=== PATIENT | female | born 1975 | race African-American/Black ===

== ENCOUNTER 2019-06-26 13:36 | Emergency (ER) | payer MEDICARE, MEDICAID, SELFPAY ==
[2019-06-26 13:58] VITALS: BP 127/83; PULSE 78; RESP 16; TEMP 37; O2SAT 100
[2019-06-26 14:24] VITALS: BP 136/74; PULSE 88; RESP 16; TEMP 36.8; O2SAT 98
--- NOTE | 2019-06-26 14:26 | PCCCNOTE ---
Made referral to Homeless Hotline: [phone]. They will make a referral to the [facility] in [place], [place]. Placement pending room availability. [facility] # [phone].
--- NOTE | 2019-06-26 14:29 | ED.PSYCH ---
HPI - Psych General Chief Complaint: Psychiatric Symptoms Stated Complaint: Incontinence Time Seen by Provider: 06/26/19 14:08 Source: patient Mode of arrival: other (PD) Limitations: no limitations History of Present Illness HPI Narrative: Pt is a 44 y/o female with a H/O schizophrenia, that presents to the ED by the PD, to receive a psychiatric evaluation. Pt states she was taken by the PD d/t her trespassing. She states that ran out of her trazodone 3-4 days ago. Pt also takes Latuda and Zoloft. She denies SI, HI, N/V/D, constipation, coughing, sneezing, or rhinorrhea. Pt reports a SLAUGHTER that started 2 hours ago and menstrual cramps. She also states that she has had intermittent urinary incontinence for the last 3 weeks. Pt lives alone but notes that she does have a boyfriend that she sees occasionally. Pt denies smoking, drinking, or using drugs. MD complaint: other (psychiatric evaluation) Onset (ago): unknown History of same: Yes Context: not taking psychiatric medications (out of Trazadone) Associated psychiatric symptoms: other (schizophrenia) Associated symptoms: headache and other (urinary incontinence) Related Data Home Medications Medication Instructions Recorded Confirmed lurasidone [Latuda] mg 06/26/19 sertraline mg 06/26/19 trazodone 06/26/19 06/26/19 Allergies Allergy/AdvReac Type Severity Reaction Status Date / Time No Known Allergies Allergy Unverified 11/27/18 14:35 Review of Systems Review of Systems: All systems reviewed & are unremarkable except as noted in HPI and below ENT: Denies other (sneezing, rhinorrhea) Respiratory: Respiratory: Denies cough Gastrointestinal: Gastrointestinal: Denies constipation, Denies diarrhea, Denies nausea, Denies vomiting and Reports other (menstrual cramps) Genitourinary: Genitourinary: Reports urinary incontinence Neurologic: Reports headache(s) Psychiatric: Psychiatric: Denies homicidal ideation and Denies suicidal ideation [facility] Past Medical History Medical History (Updated 06/26/19 @ 14:57 by Chet Patricia) Depression Schizophrenic disorder Surgical History Surgical History (Updated 06/26/19 @ 14:57 by Chet Patricia) No significant past surgical history Social History Social History (Updated 03/11/20 @ 14:57 by Chet Yepez Smoking status: Never smoker Alcohol intake: never Substance use: never Gender identity (if verbalized by the patient): Female Exam Narrative: Exam Narrative: General appearance: Well-developed, well-nourished Skin: Normal color Head: Normocephalic, nontraumatic Eyes: Clear conjunctiva ENT: Oropharynx normal, ears normal, nose normal Neck: Supple, nontender Chest and respiratory: Airway patent, no respiratory distress, no accessory muscle use Heart: Regular rate/rhythm Abdomen: Soft, nontender, no organomegaly, quiet bowel sounds Vascular: Normal peripheral pulses, normal capillary refill. Musculoskeletal: Normal range of motion, nontender back Neurologic: Alert and oriented ?3, SOLE ROUGHER is normal as tested, no gross motor deficit Course Course Emergency Course: Unchanged Reevaluation(s) Reevaluation #1: Patient had hematuria secondary to her menstrual cycle. Currently patient on her menstrual cycle. Patient is ready to go home where she used to live before. Date: 06/26/19 Time: 17:15 Vital Signs Vital signs: Vital Signs Temperature 37.0 C 06/26/19 13:58 Pulse Rate 78 06/26/19 13:58 Respiratory Rate 16 06/26/19 13:58 Blood Pressure 127/83 06/26/19 13:58 Pulse Oximetry 100 06/26/19 13:58 Temperature 36.8 C 06/26/19 14:24 Pulse Rate 84 06/26/19 16:28 Respiratory Rate 16 06/26/19 16
[2019-06-26] MEDS: ACETAMINOPHEN 325 MG TABLET 650 MG PO (14:44)
--- NOTE | 2019-06-26 15:01 | PC.NURSE ---
PT HERE VIA PD FROM [place]. DROPPED OFF HERE TO FIND PT PLACEMENT. PT SAID TO BE NON COMPLIANT WITH MEDICATIONS. PT TELLS ME THAT SHE IS SCHIZOPHRENIC. IS OFF HER MEDS, LATUDA, SERTRALINE AND TRAZODONE. PT SAYS SHE IS BETWEEN HOMES RIGHT NOW. PT HAS HAD CONTACT WITH DR KY MONTERO, HAS NOT SEEN HIM IN THE LAST MONTH OR TWO. PT SAYS SHE IS HEARING VOICES, DISTRACTING NOT COMMAND. PT DENIED ANY THOUGHTS OF SELF HARM., IS COMPLIANT AT THIS TIME PT ONLY C/O OF A HEADACHE WHICH SHE RECEIVED TYLENOL
[2019-06-26 15:14] LABS: Eosinophils Absolute Auto 0.1 K/mm3 (0-0.3); Hematocrit 36.7 % (37.0-47.0); Hemoglobin 11.3 g/dL (12.0-15.0); Immature Granulocyte Absolute 0.01 K/mm3 (0.00-0.031); Immature Granulocyte Percent A 0.3 % (0-0.5); Immature Platelet Fraction Pct 2.6 % (0.9-11.2); Lymphocytes Absolute Auto 0.95 K/mm3 (0.9-3.2); Lymphocytes Percent Auto 24.1 % (18.3-44.2); Mean Corpuscular HGB Conc 30.8 g/dl (32-36); Mean Corpuscular Hemoglobin 23.4 pg (26-34); Mean Corpuscular Volume 76.1 fl (80-100); Mean Platelet Volume 10.1 fl (7.4-10.4); Monocytes Absolute Auto 0.3 K/mm3 (0.1-0.6); Monocytes Percent Auto 8.4 % (2.6-8.5); Neutrophils Absolute Auto 2.5 K/mm3 (1.3-6.7); Neutrophils Percent Auto 64.2 % (45.5-73.1); Platelet Count Result 214 k/mm3 (150-375); Red Blood Count 4.82 M/mm3 (4.2-5.4); Red Cell Distribution Width 18.9 % (11.5-14.5)
[2019-06-26 15:19] LABS: Add Urine Microscopic? YES; Appearance Urine Clear (Clear); Bacteria Urine Trace /hpf; Bilirubin Urine Negative (Negative); Blood Urine 3+ (Negative); Color Urine Amber (Yellow); Glucose Urine UA Negative (Negative); Ketones Urine Negative (Negative); Leukocyte Esterase Ur Negative LEU/UL (Negative); Mucus Urine Rare /lpf; Nitrate Urine Negative (Negative); Protein Urine 2+ mg/dL (Negative); RBC Urine >75 /hpf (0-2); Specific Grav Ur 1.021 (1.001-1.035); Squamous Epithelial Cell Urine Many /hpf (Few); Urobilinogen Urine Negative mg/dL (<2.0)
[2019-06-26 15:30] LABS: Ethanol < 10 mg/dL (<10)
[2019-06-26 15:33] LABS: Alanine Aminotransferase 15 U/L (4-35); Albumin Level 4.2 g/dL (3.5-5.1); Alkaline Phosphatase 82 U/L (38-126); Aspartate Amino Transferase 27 U/L (14-36); Bilirubin,Total 1.4 mg/dL (0.2-1.3); Blood Urea Nitrogen 10 mg/dL (7-17); Calcium 9.2 mg/dL (8.4-10.2); Carbon Dioxide 29 mmol/L (22-30); Chloride 106 mmol/L (98-107); Estimated CRCL calculation 56 ml/min; Estimated Glomerular Filt Rate > 60; Glucose 130 mg/dL (65-105); Potassium 4.1 mmol/L (3.4-5.0); Sodium 140 mmol/L (137-145)
[2019-06-26 15:40] LABS: Amphetamine Screen Urine Negative (Negative); Barbiturate Screen Urine Negative (Negative); Benzodiazepines Screen Urine Negative (Negative); Cannabinoid Screen Urine Negative (Negative); Cocaine Screen Urine Negative (Negative); Methadone Screen Urine Negative (Negative); Opiate Screen Urine Negative (Negative); Phencyclidine Screen Urine Negative (Negative)
[2019-06-26 16:07] LABS: Thyroid Stimulating Hormone 0.916 uIU/mL (0.465-4.680)
--- NOTE | 2019-06-26 16:27 | PCCCNOTE ---
Made referrals to [facility] Homeless hotline and spoke with [facility]. They are refusing patient. Patient was in there system and the director has refused accepting patient. Contacted [facility], [place] [phone]. They spoke with patient and made an intake referral. There are no beds available in the [place] [facility] area at this time. Gave patient the phone numbers of the contacts I spoke with. She is being d/c'd home. T
[2019-06-26 16:28] VITALS: BP 142/81; PULSE 84; RESP 16; O2SAT 98
== END 2019-06-26 17:34 | disposition home or self-care (01) ==
PROVIDERS: Emergency Provider Emergency Medicine; PCP Internal Medicine Infectious Disease
DX: R35.8 Other polyuria (principal); Z59.0 Homelessness; F32.9 Major depressive disorder, single episode, unspecified; F20.9 Schizophrenia, unspecified
CPT/HCPCS: 36415; 80053; 80307; 81001; 81025; 84443; 85025; 85055; 99283; A9270